=== PATIENT | female | born 1955 | race Caucasian/White ===

== ENCOUNTER → 2023-08-19 | Outpatient (CLI) | payer SELFPAY | END | disposition home or self-care (01) | LOC: LABSPEC 15:37 | PROVIDERS: Referring Provider Nurse Practitioner Family; Visit Provider Nurse Practitioner Family | DX: N89.8 Other specified noninflammatory disorders of vagina (principal) | CPT/HCPCS: 87070; 87077; 87186; 87205 ==

== ENCOUNTER → 2023-09-06 | Outpatient (CLI) | payer SELFPAY ==
--- NOTE | 2023-09-06 13:32 | US_ITS ---
EXAM: US PELVIS TRANSABDOMINAL, LIMITED CLINICAL INDICATION: PMB -- prolapsed UT -- PATIENT HAS A PESSARY TECHNIQUE: Transabdominal pelvic ultrasound (limited) was performed with grayscale and color Doppler imaging. COMPARISON: No relevant prior studies available. FINDINGS: UTERUS/CERVIX: Uterus measures 7.2 x 3.0 x 5.0 cm. The endometrium measures 6 mm. There are small calcifications in the uterus. Anteverted. RIGHT OVARY: The right ovary measures 2.3 x 1.5 x 2.3 cm. Blood flow is present in the right ovary. LEFT OVARY: The left ovary measures 2.1 x 2.9 x 1.1 cm. Blood flow is present in the left ovary. FREE FLUID: None. BLADDER: The bladder measures 8.1 x 6.2 x 7.9 cm 4 x 2 107 mL. There is a hypoechoic structure inferior to the bladder compatible with a pessary. There is trabeculation of the bladder floor. US/Pelvic (Non ) IMPRESSION: Trabeculation of the bladder floor. No other acute abnormalities are identified. Electronically Signed: Carlos Pruett MD at 0:00 EDT ,
== END | disposition home or self-care (01) ==
PROVIDERS: Referring Provider Nurse Practitioner Family; Visit Provider Nurse Practitioner Family
DX: N95.0 Postmenopausal bleeding (principal)
CPT/HCPCS: 76856

== ENCOUNTER → 2023-09-30 | Outpatient (CLI) | payer SELFPAY | END | disposition home or self-care (01) | LOC: LABSPEC 12:24 | PROVIDERS: Referring Provider Nurse Practitioner Family; Visit Provider Nurse Practitioner Family | DX: R10.2 Pelvic and perineal pain (principal) | CPT/HCPCS: 87086; 87088; 87186 ==